=== PATIENT | female | born 1990 | race Native Hawaiian/Other Pacific Islander ===

== ENCOUNTER 2018-09-06 13:30 | Emergency (ER) | payer OTHER ==
[2018-09-06] MEDS ORDERED: NACL 0.9% 1000 ML 1,000 ML IV ONE (13:37)
[2018-09-06 14:06] LABS: Basophils % (Auto) 0.5 % (0.0-1.8); Eosinophils # (Auto) 0.2 K/mm3 (0.0-0.4); Eosinophils % (Auto) 2.6 % (0.0-4.3); Hematocrit 39.7 % (30.3-42.9); Lymphocytes # (Auto) 2.4 K/mm3 (1.2-5.4); Lymphocytes % (Auto) 37.7 % (13.4-35.0); Mean Corpuscular HGB Conc 33 % (30-34); Mean Corpuscular Volume 75 fl (79-97); Monocytes # (Auto) 0.4 K/mm3 (0.0-0.8); Platelet Count 306 K/mm3 (140-440); Red Blood Count 5.27 M/mm3 (3.65-5.03); Red Cell Distribution Width 15.4 % (13.2-15.2)
[2018-09-06 15:17] LABS: Alanine Aminotransferase 21 units/L (7-56); Albumin 4.1 g/dL (3.9-5); BUN/Creatinine Ratio 22; Blood Urea Nitrogen 11 mg/dL (7-17); Calcium 9.2 mg/dL (8.4-10.2); Hemolysis Index 9
[2018-09-06 15:45] LABS: Bilirubin,Urine NEG (Negative); Blood,Urine NEG (Negative); Color,Urine Straw (Yellow); Protein,Urine <15 mg/dL mg/dL (Negative); Urobilinogen,Urine < 2.0 mg/dL (<2.0)
[2018-09-06 15:48] LABS: HCG Qualitative,Urine Negative (Negative)
--- NOTE | 2018-09-06 16:52 | XRay Report ---
PROCEDURE: XR ABDOMEN 1V AP TECHNIQUE: Supine views of the abdomen HISTORY: abd pain COMPARISONS: None . FINDINGS: The bowel gas pattern is nonspecific. Moderate stool is present throughout the proximal half of the c olon No free air is identified. Soft tissues have no evidence for mass shadows or calcifications. The bony structures are intact. IMPRESSION: Nonspecific, nonobstructive bowel gas pattern with no acute process noted. This document is electronically signed by Cherri Ivey MD., September 06 2018 04:51:02 PM ET
[2018-09-06] MEDS ORDERED: MORPHINE IV STA ×2 (18:30→21:26)
[2018-09-06] MEDS ORDERED: ZOFRAN IV STA (18:30)
--- NOTE | 2018-09-06 18:39 | Emergency Department Report ---
ED Abdominal Pain HPI - General Chief Complaint: Abdominal Pain Stated Complaint: ABD/PELVIC PAIN Time Seen by Provider: 09/06/18 18:30 Source: patient Mode of arrival: Ambulatory Limitations: No Limitations - History of Present Illness MD Complaint: abdominal pain -: week(s) (2) Location: diffuse Radiation: none Migration to: no migration Severity scale (0 -10): 4 Quality: aching Consistency: constant Improves With: nothing Worsens With: nothing Associated Symptoms: nausea. denies: fever, constipation, dysuria, hematochezia, hematuria, anorexia, syncope - Related Data Previous Rx's Medication Instructions Recorded Last Taken Type Hyoscyamine Subl [Levsin Sl] 0.125 mg SL Q4HR PRN #16 tablet 09/07/18 Unknown Rx Ondansetron [Zofran ODT TAB] 8 mg PO Q12HR #14 tab.rapdis 09/07/18 Unknown Rx Allergies Allergy/AdvReac Type Severity Reaction Status Date / Time No Known Allergies Allergy Unverified 09/06/18 13:36 ED Review of Systems ROS: Stated complaint: ABD/PELVIC PAIN Other details as noted in HPI Constitutional: denies: chills, fever Eyes: denies: eye pain, eye discharge, vision change ENT: denies: ear pain, throat pain Respiratory: denies: cough, shortness of breath, wheezing Cardiovascular: denies: chest pain, palpitations Endocrine: no symptoms reported Gastrointestinal: abdominal pain, nausea. denies: diarrhea, constipation, hematemesis Genitourinary: denies: urgency, dysuria, discharge Musculoskeletal: denies: back pain, joint swelling, arthralgia Skin: denies: rash, lesions Neurological: denies: headache, weakness, paresthesias Psychiatric: denies: anxiety, depression Hematological/Lymphatic: denies: easy bleeding, easy bruising ED Past Medical Hx - Past Medical History Previous Medical History?: No - Surgical History Past Surgical History?: No - Social History Smoking Status: Never Smoker Substance Use Type: None - Medications Home Medications: Home Medications Medication Instructions Recorded Confirmed Last Taken Type Hyoscyamine Subl [Levsin Sl] 0.125 mg SL Q4HR PRN #16 tablet 09/07/18 Unknown Rx Ondansetron [Zofran ODT TAB] 8 mg PO Q12HR #14 tab.rapdis 04/29/19 Unknown Rx ED Physical Exam - General Limitations: No Limitations General appearance: alert, in no apparent distress - Head Head exam: Present: atraumatic, normocephalic - Eye Eye exam: Present: normal appearance, PERRL, EOMI Pupils: Present: normal accommodation - ENT ENT exam: Present: normal exam, normal orophraynx, mucous membranes moist, TM's normal bilaterally - Neck Neck exam: Present: normal inspection, tenderness, full ROM - Respiratory Respiratory exam: Present: normal lung sounds bilaterally. Absent: respiratory distress, wheezes, rales, rhonchi, chest wall tenderness, accessory muscle use, decreased breath sounds - Cardiovascular Cardiovascular Exam: Present: regular rate, normal rhythm. Absent: systolic murmur, diastolic murmur, rubs, gallop - GI/Abdominal GI/Abdominal exam: Present: soft, tenderness, normal bowel sounds, other (no Rovsing, no Garcia Garcia no Caesar sign. There is some mild discomfort to the right upper quadrant and epigastric region with palpation.). Absent: distended, guarding, rebound, rigid, hyperactive bowel sounds, hypoactive bowel sounds, organomegaly, mass, bruit - Extremities Exam Extremities exam: Present: normal inspection, full ROM, normal capillary refill - Back Exam Back exam: Present: normal inspection, full ROM. Absent: CVA tenderness (R), CVA tenderness (L), muscle spasm, paraspinal tenderness - Neurological Exam Neurological exam: Present: alert, oriented X3, CN II-XII intact, normal gait - Psychiatric Psychiatric exam: Present: normal affect, normal mood. Absent: anxious, flat affect, manic, homicidal ideation, suicidal ideation - Skin Skin exam: Present: warm, dry, intact, normal color. Absent: rash ED Course Vital Signs 09/06/18 09/06/18 09/06/18 13:38 18:01 18:29 Temperature 98.6 F 99.1 F Pulse Rate 82 75 Respiratory 18 18 18 Rate Blood Pressure 127/75 Blood Pressure 118/76 [Left] O2 Sat by Pulse 100 100 100 Oximetry 09/06/18 20:18 Temperature 97.6 F Pulse Rate 74 Respiratory 16 Rate Blood Pressure Blood Pressure 108/81 [Left] O2 Sat by Pulse 100 Oximetry ED Medical Decision Making - Lab Data Result diagrams: 09/06/18 13:46 09/06/18 13:46 - Medical Decision Making 28-year-old female with a history of abdominal pain and with no nausea, vomiting or diarrhea. Laboratory data is normal. The normal liver enzymes and total bili and lipase. She does have a have gallstones with minimal lead thickened gallbladder wall due to the possibility of acute cholecystitis. Because the patient's labs are of normal variation. She tolerates oral and seems to be comfortable at this present time. They'll follow up with GI. I oralia l she develops a fever, vomiting, diarrhea, or any worsening in her symptoms. She will need to return to the emergency department at that point time more aggressive intervention may be required. We'll place on a gallbladder diet. 4. Rest purposes for the next 48-72 hours. Currently, she tolerated oral no complications. She resting comfortably in no acute distress. Ambulatory Critical care attestation.: If time is entered above; I have spent that time in minutes in the direct care of this critically ill patient, excluding procedure time. ED Disposition Clinical Impression: Cholecystolithiasis, Nausea Disposition: [id number] TO HOME OR SELFCARE Is pt being admited?: No Does the pt Need Aspirin: No Condition: Stable Instructions: Abdominal Pain (ED), Cholecystitis (ED), Biliary Colic (ED) Additional Instructions: Be should to return to the emergency department, she did develop a fever, worsening pain, inability to keep food down or any suggestion that her condition is worsening. Follow-up with the foreman/pile driving and erection in the next 24-48 hours. Please Referrals: ARNOLD STRICKLAND MD [Primary Care Provider] - 3-5 Days [facility] [Provider Group] - 3-5 Days BEKA TRIPP DO [Staff Physician] - 3-5 Days Print Language: EGYPTIAN
--- NOTE | 2018-09-06 19:50 | Cat Scan Report ---
PROCEDURE: CT ABDOMEN PELVIS W CON TECHNIQUE: Following administration of IV contrast axial helical imaging was performed through the a bdomen and pelvis with sagittal and coronal reformatted images obtained. Delayed axial helical imagin g was also performed to the abdomen and pelvis. HISTORY: Lower ABD Pain COMPARISONS: X-ray abdomen and pelvis also performed today FINDINGS: There is dependent atelectasis in both lung bases. The liver, spleen, pancreas, kidneys and adrenal glands are unremarkable. There is moderate distention of the gallbladder which contains gallstones. There appears to be a smal l amount of pericholecystic fluid. The common bile duct is normal caliber. The bowel is normal caliber. The appendix is normal caliber. There is a moderate amount of stool in the ascending, transverse and proximal descending colon. There is no evidence of pneumoperitoneum. There is a small amount of free fluid in the pelvis. This may be physiologic in nature. There is no evidence of pneumoperitoneum. The abdominal aorta is normal in appearance. There is no evidence of intra-abdominal adenopathy. The urinary bladder is moderately distended and unremarkable. The uterus and adnexa are notable for an approximately 2 cm cystic-appearing structure in the right o vary with marginal enhancement which may represent a corpus luteum cyst. The bony structures are unremarkable. IMPRESSION: 1. Gallstones in the moderately distended gallbladder with a possible small amount of pericholecystic fluid. If there is a clinical suspicion of acute cholecystitis, ultrasound imaging may be helpful. 2. Moderate amount of stool in the ascending, transverse and proximal descending colon. 3. Small amount of free fluid in the pelvis. This may be physiologic in nature. 4. Small, approximately 2 cm, possible corpus luteum cyst right ovary. This document is electronically signed by Sherry Juarez MD., September 06 2018 07:48:38 PM ET
[2018-09-06 20:19] VITALS: BP 108/81
--- NOTE | 2018-09-06 22:38 | Ultrasound Report ---
PROCEDURE: US ABDOMEN LIMITED TECHNIQUE: Real-time sonography was performed of the right upper quadrant with image documentation. HISTORY: RUQ pain COMPARISONS: CT A/P 09/06/2018 . FINDINGS: Examination of the gallbladder demonstrates gallbladder wall prominence at 3.4 mm in thickness. There is a single large gallstone in the gallbladder fundus. There is no evidence for distention or perich olecystic fluid. Positive sonographic Lerner's sign is elicited. Common bile duct is normal in diamet er measuring 3.2 mm. The liver is mildly inhomogeneous in echogenicity without focal abnormality or intrahepatic biliary d ilatation. The pancreas is normal in thickness without focal abnormality or pancreatic duct dilatation. The dist al pancreatic tail is not visualized due to bowel gas. The right kidney is normal in size without calculi or hydronephrosis. The right measures 8.8 cm in c raniocaudal length. Abdominal aorta is 1.5 cm in diameter in its proximal portion IMPRESSION: 1. Cholelithiasis with gallbladder wall prominence. Positive sonographic Lerner's sign is elicited. A cute cholecystitis is included in the differential. 2. Mildly heterogeneous liver of uncertain significance This document is electronically signed by Cherri Ivey MD., September 06 2018 10:36:40 PM ET
== END 2018-09-07 01:20 | disposition home or self-care (01) ==
LOC: ED 13:30
DX: K80.20 Calculus of gallbladder without cholecystitis without obstruction (principal); R11.0 Nausea
CPT/HCPCS: 36415; 74018; 74177; 76705; 80053; 81001; 81025; 85025; 96374; 96375; 96376; 99284; J2270; J2405; J7030; Q9967